=== PATIENT | female | born 1950 | race Caucasian/White ===

== ENCOUNTER 2016-12-17 14:31 | Outpatient (CLI) | payer BC ==
[2015-08-18 04:45] VITALS: O2SAT 99
== END 2016-12-17 14:32 | disposition home or self-care (01) ==
LOC: CONVCARE 14:31
PROVIDERS: ATTEND Orthopaedic Surgery
DX: M16.11 Unilateral primary osteoarthritis, right hip (principal)
CPT/HCPCS: 73502

== ENCOUNTER 2018-05-11 10:26 | Outpatient (CLI) | payer MEDICARE, BC ==
[2015-08-18 04:45] VITALS: O2SAT 99
== END 2018-05-11 10:27 | disposition home or self-care (01) | DRG 554 ==
LOC: CONVCARE 10:26
PROVIDERS: ATTEND Orthopaedic Surgery
DX: M16.11 Unilateral primary osteoarthritis, right hip (principal)
CPT/HCPCS: 73502

== ENCOUNTER 2018-11-02 05:25 | Inpatient (IN) | payer MEDICARE, BC ==
[~2018-11-02 05:25] MED LIST: SODIUM CHLORIDE 0.9% FLUSH 10 ML SOL IV PRN
[2018-11-02] MEDS ORDERED: SCOPOLAMINE 1.5MG PATCH TD SCH (06:00)
[2018-11-02] MEDS ORDERED: LACTATED RINGERS 1,000 ML IV ONE (06:30)
[2018-11-02] MEDS ORDERED: LACTATED RINGERS 1,000 ML IV SCH (07:30)
[2018-11-02] MEDS ORDERED: PROPOFOL 500 MG/50 ML EMU IV ONE (07:34)
[2018-11-02] MEDS ORDERED: PHENYLEPHRINE HYDROCHLORIDE 10 MG/ML SOL ONE (07:34)
[2018-11-02] MEDS ORDERED: MORPHINE SULFATE 0.5 MG/ML SOL ONE (07:34)
[2018-11-02] MEDS ORDERED: CEFAZOLIN SODIUM 1 GM PDS ONE ×3 (07:34→23:57)
[2018-11-02] MEDS ORDERED: DEXAMETHASONE 20 MG/5 ML (4 MG/ML SOL) ONE (07:34)
[2018-11-02] MEDS ORDERED: FENTANYL 100MCG/2ML SOL ONE (07:34)
[2018-11-02] MEDS ORDERED: ONDANSETRON HCL 4 MG/2 ML SOL ONE (07:34)
[2018-11-02] MEDS ORDERED: MIDAZOLAM 2 MG/2 ML SOL ONE (07:34)
[2018-11-02] MEDS ORDERED: BUPIVACAINE LIPOSOME 20 ML SUS ONE (07:42)
[2018-11-02] MEDS ORDERED: BUPIVACAINE HCL 0.25% MPF 30 ML SOL INFIL ONE (07:42)
[2018-11-02] MEDS ORDERED: SODIUM CHLORIDE 20 ML 20 ML ONE (07:42)
[2018-11-02] MEDS ORDERED: BUPIVACAINE HCL IN DEXTROSE/PF 2 ML AMPUL IJ ONE (07:45)
[2018-11-02] MEDS ORDERED: TRANEXAMIC ACID 100 MG/ML SOL IR ONE (09:00)
[2018-11-02] MEDS ORDERED: MORPHINE SULFATE 10 MG/ML SOL IV PRN (09:14)
[2018-11-02] MEDS ORDERED: ONDANSETRON 4 MG ODT BU PRN (09:14)
[2018-11-02] MEDS ORDERED: SODIUM CHLORIDE 0.9% 500 ML 500 ML IV PRN (09:14)
[2018-11-02] MEDS ORDERED: ACETAMINOPHEN 325 MG PO PRN (09:14)
[2018-11-02] MEDS ORDERED: DIAZEPAM 5 MG TAB PO PRN (09:14)
[2018-11-02] MEDS ORDERED: ALBUTEROL NEB SOL 2.5MG/3ML 1 VIAL SOL NEB PRN (12:51)
[2018-11-02] MEDS: DEXTROSE/SALINE 0.45/KCL 20MEQ 1,000 ML/1,000 ML SOL IV SCH ×2 (13:15→19:25)
[2018-11-02] MEDS: SODIUM CHLORIDE 0.9% FLUSH 10 ML SOL IV SCH ×2 (13:18→18:03)
[2018-11-02] MEDS ORDERED: CEFAZOLIN SODIUM 1 GM PDS 2 GM in SODIUM CHLORIDE 0.9% 100 ML 100 ML IV SCH (15:15)
[2018-11-02] MEDS: DIPHENHYDRAMINE 50 MG/ML SOL IV PRN ×2 (15:41→23:44)
[2018-11-02] MEDS ORDERED: SODIUM CHLORIDE 0.9% 100 ML 100 ML IV ONE ×2 (16:35→23:57)
[2018-11-02] MEDS: CEFAZOLIN SODIUM 1 GM PDS 2 GM in SODIUM CHLORIDE 0.9% 100 ML 100 ML IV SCH (16:48)
[2018-11-02] MEDS: SENNOSIDES A AND B 8.6 MG TAB PO SCH (21:20)
[2018-11-02] MEDS: APAP/HYDROCODONE 1 EACH TABLET PO PRN (21:20)
[2018-11-03] MEDS: CEFAZOLIN SODIUM 1 GM PDS 2 GM in SODIUM CHLORIDE 0.9% 100 ML 100 ML IV SCH (00:08)
[2018-11-03] MEDS: SODIUM CHLORIDE 0.9% FLUSH 10 ML SOL IV SCH ×3 (01:30→19:17)
[2018-11-03] MEDS: APAP/HYDROCODONE 1 EACH TABLET PO PRN ×5 (01:30→21:11)
[2018-11-03 07:20] LABS: HEMOGLOBIN 11.5 gm/dl (12.0-15.5); MEAN CORPUSCULAR HEMOGLOBIN 30.3 pg (27.0-32.0); MEAN CORPUSCULAR HGB CONC 32.9 gm/dl (32.0-36.0)
[2018-11-03] MEDS ORDERED: ATORVASTATIN CALCIUM 40 MG TAB PO SCH (09:00)
[2018-11-03] MEDS ORDERED: BUPROPION 150 MG PO SCH (09:00)
[2018-11-03] MEDS ORDERED: OMEPRAZOLE 20 MG PO SCH (09:00)
[2018-11-03] MEDS: PANTOPRAZOLE SODIUM 40 MG ECT PO SCH (09:01)
[2018-11-03] MEDS: ESCITALOPRAM 10 MG TAB PO SCH (09:01)
[2018-11-03] MEDS: RIVAROXABAN 10 MG TAB PO SCH (09:01)
[2018-11-03] MEDS: MULTIVITAMIN2 1 EA TAB PO SCH (09:01)
[2018-11-03] MEDS: LISINOPRIL 5 MG TAB PO SCH (09:02)
[2018-11-03] MEDS: HYDROCHLOROTHIAZIDE 25 MG TAB PO SCH (11:54)
[2018-11-03] MEDS: ATORVASTATIN 10 MG TAB PO SCH (12:03)
[2018-11-03] MEDS: DIPHENHYDRAMINE 50 MG/ML SOL IV PRN (12:04)
[2018-11-03] MEDS: BUPROPION XL 150 MG T24 PO SCH (12:04)
[2018-11-03] MEDS: SENNOSIDES A AND B 8.6 MG TAB PO SCH (21:11)
[2018-11-04] MEDS: APAP/HYDROCODONE 1 EACH TABLET PO PRN ×6 (01:13→21:11)
[2018-11-04] MEDS: SODIUM CHLORIDE 0.9% FLUSH 10 ML SOL IV SCH ×2 (01:13→10:01)
[2018-11-04 07:29] LABS: HEMOGLOBIN 11.5 gm/dl (12.0-15.5); MEAN CORPUSCULAR HEMOGLOBIN 30.6 pg (27.0-32.0); MEAN CORPUSCULAR HGB CONC 32.7 gm/dl (32.0-36.0)
[2018-11-04] MEDS: ESCITALOPRAM 10 MG TAB PO SCH (09:58)
[2018-11-04] MEDS: ATORVASTATIN 10 MG TAB PO SCH (09:58)
[2018-11-04] MEDS: HYDROCHLOROTHIAZIDE 25 MG TAB PO SCH (09:58)
[2018-11-04] MEDS: MULTIVITAMIN2 1 EA TAB PO SCH (09:59)
[2018-11-04] MEDS: BUPROPION XL 150 MG T24 PO SCH (09:59)
[2018-11-04] MEDS: RIVAROXABAN 10 MG TAB PO SCH (09:59)
[2018-11-04] MEDS: PANTOPRAZOLE SODIUM 40 MG ECT PO SCH (09:59)
[2018-11-04] MEDS: LISINOPRIL 5 MG TAB PO SCH (10:00)
[2018-11-04] MEDS: SENNOSIDES A AND B 8.6 MG TAB PO SCH (21:12)
[2018-11-05] MEDS: APAP/HYDROCODONE 1 EACH TABLET PO PRN ×3 (00:32→10:01)
[2018-11-05 07:32] LABS: HEMOGLOBIN 10.9 gm/dl (12.0-15.5); MEAN CORPUSCULAR HEMOGLOBIN 30.5 pg (27.0-32.0); MEAN CORPUSCULAR HGB CONC 33.2 gm/dl (32.0-36.0)
[2018-11-05 07:44] LABS: CALCIUM 8.5 mg/dl (8.5-10.1); CREATININE 0.71 mg/dl (0.60-1.00); POTASSIUM 3.2 mMol/L (3.5-5.1)
[2018-11-05] MEDS: ATORVASTATIN 10 MG TAB PO SCH (08:17)
[2018-11-05] MEDS: RIVAROXABAN 10 MG TAB PO SCH (08:17)
[2018-11-05] MEDS: HYDROCHLOROTHIAZIDE 25 MG TAB PO SCH (08:17)
[2018-11-05] MEDS: LISINOPRIL 5 MG TAB PO SCH (08:18)
[2018-11-05] MEDS: BUPROPION XL 150 MG T24 PO SCH (08:18)
[2018-11-05] MEDS: PANTOPRAZOLE SODIUM 40 MG ECT PO SCH (08:18)
[2018-11-05] MEDS: MULTIVITAMIN2 1 EA TAB PO SCH (08:18)
[2018-11-05] MEDS: ESCITALOPRAM 10 MG TAB PO SCH (08:19)
[2018-11-05 08:21] VITALS: BP 118/81; PULSE 95; RESP 16; TEMP 97.2; O2SAT 94
[2018-11-05] MEDS ORDERED: POTASSIUM CHLORIDE 10 MEQ TER PO SCH (09:15)
[2018-11-05] MEDS ORDERED: PNEUMOC 13-VAL CONJ-DIP CRM/PF 0.5 ML SYRINGE IM ONE (09:44)
== END 2018-11-05 10:54 | disposition swing bed (61) | DRG 470 ==
LOC: ACUTE CARE 05:25
PROVIDERS: ADMIT Orthopaedic Surgery; ATTEND Orthopaedic Surgery
PROC: F01L5YZ Range of Motion and Joint Integrity Assessment of Musculoskeletal System - Lower Back / Lower Extremity using Other Equipment (ICD-10-PCS; 2018-11-02)
PROC: F01ZBFZ Bed Mobility Assessment using Assistive, Adaptive, Supportive or Protective Equipment (ICD-10-PCS; 2018-11-02)
PROC: F01ZCFZ Transfer Assessment using Assistive, Adaptive, Supportive or Protective Equipment (ICD-10-PCS; 2018-11-02)
PROC: 0SR90JA Replacement of Right Hip Joint with Synthetic Substitute, Uncemented, Open Approach (ICD-10-PCS; principal; 2018-11-02 08:00)
PROC: F02Z0FZ Bathing/Showering Assessment using Assistive, Adaptive, Supportive or Protective Equipment (ICD-10-PCS; 2018-11-03)
PROC: F02Z3ZZ Grooming/Personal Hygiene Assessment (ICD-10-PCS; 2018-11-03)
DX: M16.11 Unilateral primary osteoarthritis, right hip (principal); Z96.641 Presence of right artificial hip joint; I10 Essential (primary) hypertension; E78.5 Hyperlipidemia, unspecified; F32.9 Major depressive disorder, single episode, unspecified; E87.6 Hypokalemia
CPT/HCPCS: 36415; 73501; 73502; 80048; 85027; 85049; 90670; 94150; J0690; J1100; J1200; J2250; J2274; J2405; J3010; A6232; A9270-GY; G0008; J2370; J2704; J3490; Q3014

== ENCOUNTER 2018-11-05 09:41 | Inpatient (IN) | payer MEDICARE, BC ==
[2018-11-05] MEDS: POTASSIUM CHLORIDE 10 MEQ TER PO SCH ×2 (13:13→16:30)
[2018-11-05] MEDS: APAP/HYDROCODONE 1 EACH TABLET PO PRN ×3 (15:20→23:14)
[2018-11-06] MEDS: APAP/HYDROCODONE 1 EACH TABLET PO PRN ×4 (04:03→20:51)
[2018-11-06] MEDS: LISINOPRIL 5 MG TAB PO SCH (08:31)
[2018-11-06] MEDS: MULTIVITAMIN2 1 EA TAB PO SCH (08:31)
[2018-11-06] MEDS: ESCITALOPRAM 10 MG TAB PO SCH (08:31)
[2018-11-06] MEDS: RIVAROXABAN 10 MG TAB PO SCH (08:31)
[2018-11-06] MEDS: ATORVASTATIN 10 MG TAB PO SCH (08:31)
[2018-11-06] MEDS: BUPROPION XL 150 MG T24 PO SCH (08:32)
[2018-11-06] MEDS: HYDROCHLOROTHIAZIDE 25 MG TAB PO SCH (08:33)
[2018-11-06] MEDS: PANTOPRAZOLE SODIUM 40 MG ECT PO SCH (08:33)
[2018-11-07] MEDS: APAP/HYDROCODONE 1 EACH TABLET PO PRN ×3 (08:04→21:10)
[2018-11-07] MEDS: LISINOPRIL 5 MG TAB PO SCH (08:05)
[2018-11-07] MEDS: ATORVASTATIN 10 MG TAB PO SCH (08:09)
[2018-11-07] MEDS: PANTOPRAZOLE SODIUM 40 MG ECT PO SCH (08:10)
[2018-11-07] MEDS: ESCITALOPRAM 10 MG TAB PO SCH (08:10)
[2018-11-07] MEDS: MULTIVITAMIN2 1 EA TAB PO SCH (08:10)
[2018-11-07] MEDS: HYDROCHLOROTHIAZIDE 25 MG TAB PO SCH (08:10)
[2018-11-07] MEDS: RIVAROXABAN 10 MG TAB PO SCH (08:11)
[2018-11-07] MEDS: BUPROPION XL 150 MG T24 PO SCH (08:11)
[2018-11-08] MEDS: APAP/HYDROCODONE 1 EACH TABLET PO PRN ×4 (00:50→21:04)
[2018-11-08] MEDS: HYDROCHLOROTHIAZIDE 25 MG TAB PO SCH (08:32)
[2018-11-08] MEDS: ESCITALOPRAM 10 MG TAB PO SCH (08:33)
[2018-11-08] MEDS: MULTIVITAMIN2 1 EA TAB PO SCH (08:34)
[2018-11-08] MEDS: ATORVASTATIN 10 MG TAB PO SCH (08:34)
[2018-11-08] MEDS: BUPROPION XL 150 MG T24 PO SCH (08:34)
[2018-11-08] MEDS: PANTOPRAZOLE SODIUM 40 MG ECT PO SCH (08:34)
[2018-11-08] MEDS: LISINOPRIL 5 MG TAB PO SCH (08:35)
[2018-11-08] MEDS: RIVAROXABAN 10 MG TAB PO SCH (08:35)
[2018-11-08] MEDS ORDERED: METAXALONE 800 MG TABLET PO PRN (10:14)
[2018-11-08 10:45] LABS: APPEARANCE,URINE Clear; BILIRUBIN,URINE NEGATIVE (NEGATIVE); COLOR,URINE Yellow; GLUCOSE, URINE (UA) NEGATIVE (NEGATIVE); KETONES,URINE NEGATIVE (NEGATIVE); LEUKOCYTE ESTERASE ,URINE TRACE (NEGATIVE); NITRATE,URINE NEGATIVE (NEGATIVE); OCCULT BLOOD,URINE TRACE LYSED (NEG-TRACE); UROBILINOGEN,URINE 0.2 (0.2-1.0 EU)
[2018-11-08 11:02] LABS: BACTERIA TRACE (< 1+); CRYSTALS NEGATIVE (0-3 AVE/HPF)
[2018-11-08] MEDS: TRAZODONE HYDROCHLORIDE 50 MG TAB PO SCH (23:34)
[2018-11-09] MEDS: APAP/HYDROCODONE 1 EACH TABLET PO PRN ×3 (03:26→23:49)
[2018-11-09 07:15] LABS: CARBON DIOXIDE 30.9 mEq/L (21-32); CREATININE 0.76 mg/dl (0.60-1.00); POTASSIUM 3.9 mMol/L (3.5-5.1)
[2018-11-09] MEDS: ATORVASTATIN 10 MG TAB PO SCH (09:05)
[2018-11-09] MEDS: ESCITALOPRAM 10 MG TAB PO SCH (09:05)
[2018-11-09] MEDS: HYDROCHLOROTHIAZIDE 25 MG TAB PO SCH (09:05)
[2018-11-09] MEDS: BUPROPION XL 150 MG T24 PO SCH (09:06)
[2018-11-09] MEDS: PANTOPRAZOLE SODIUM 40 MG ECT PO SCH (09:06)
[2018-11-09] MEDS: MULTIVITAMIN2 1 EA TAB PO SCH (09:06)
[2018-11-09] MEDS: RIVAROXABAN 10 MG TAB PO SCH (09:07)
[2018-11-09] MEDS: LISINOPRIL 5 MG TAB PO SCH (09:07)
[2018-11-09] MEDS: TRAZODONE HYDROCHLORIDE 50 MG TAB PO SCH (23:05)
[2018-11-10] MEDS: ESCITALOPRAM 10 MG TAB PO SCH (09:18)
[2018-11-10] MEDS: ATORVASTATIN 10 MG TAB PO SCH (09:18)
[2018-11-10] MEDS: MULTIVITAMIN2 1 EA TAB PO SCH (09:19)
[2018-11-10] MEDS: RIVAROXABAN 10 MG TAB PO SCH (09:19)
[2018-11-10] MEDS: LISINOPRIL 5 MG TAB PO SCH (09:19)
[2018-11-10] MEDS: PANTOPRAZOLE SODIUM 40 MG ECT PO SCH (09:19)
[2018-11-10] MEDS: BUPROPION XL 150 MG T24 PO SCH (09:20)
[2018-11-10] MEDS: HYDROCHLOROTHIAZIDE 25 MG TAB PO SCH (09:20)
[2018-11-10 11:08] VITALS: BP 98/63; PULSE 98; RESP 16; TEMP 96.5; O2SAT 98
== END 2018-11-10 14:00 | disposition home or self-care (01) | DRG 554 ==
LOC: ACUTE CARE 10:56
PROVIDERS: ADMIT Family Medicine; ATTEND Family Medicine
PROC: F01ZBFZ Bed Mobility Assessment using Assistive, Adaptive, Supportive or Protective Equipment (ICD-10-PCS; principal; 2018-11-05)
PROC: F01ZDFZ Gait and/or Balance Assessment using Assistive, Adaptive, Supportive or Protective Equipment (ICD-10-PCS; 2018-11-05)
PROC: F02Z0ZZ Bathing/Showering Assessment (ICD-10-PCS; 2018-11-05)
PROC: F02Z3ZZ Grooming/Personal Hygiene Assessment (ICD-10-PCS; 2018-11-05)
DX: M16.11 Unilateral primary osteoarthritis, right hip (principal); F32.0 Major depressive disorder, single episode, mild; M89.9 Disorder of bone, unspecified; Z96.641 Presence of right artificial hip joint; I10 Essential (primary) hypertension; E78.5 Hyperlipidemia, unspecified
CPT/HCPCS: 36415; 80048; 81001; 84132; 87077; 87088; 87186; A9270-GY

== ENCOUNTER 2018-12-14 13:53 | Outpatient (CLI) | payer MEDICARE, BC | END 2018-12-14 13:54 | disposition home or self-care (01) | LOC: CONVCARE 13:53 ==

== ENCOUNTER 2019-01-25 10:36 | Outpatient (CLI) | payer MEDICARE, BC ==
[2018-11-10 11:08] VITALS: O2SAT 98
== END 2019-01-25 10:37 | disposition home or self-care (01) | DRG 561 ==
LOC: CONVCARE 10:36
PROVIDERS: ATTEND Orthopaedic Surgery
DX: Z47.1 Aftercare following joint replacement surgery (principal); Z96.641 Presence of right artificial hip joint
CPT/HCPCS: 73501

== ENCOUNTER 2019-03-13 10:04 | Inpatient (IN) | payer MEDICARE, BC ==
[2019-03-13] MEDS ORDERED: MECLIZINE HYDROCHLORIDE 12.5 MG TAB PO ONE (10:39)
[2019-03-13] MEDS ORDERED: ONDANSETRON HCL 4 MG/2 ML SOL IV ONE (10:39)
[2019-03-13 10:41] LABS: BASOPHILS % (AUTO) 1 % (0-3); EOSINOPHILS % (AUTO) 2 % (0-9); HEMATOCRIT 44 % (35-47); HEMOGLOBIN 14.7 gm/dl (12.0-15.5); LYMPHOCYTES % (AUTO) 23.5 % (10-50); MEAN CORPUSCULAR HEMOGLOBIN 29.4 pg (27.0-32.0); MEAN CORPUSCULAR HGB CONC 33.3 gm/dl (32.0-36.0); MEAN CORPUSCULAR VOLUME 88 fL (81-99); NEUTROPHILS % (AUTO) 67.1 % (37-80)
[2019-03-13 10:50] LABS: APPEARANCE,URINE Clear; BILIRUBIN,URINE NEGATIVE (NEGATIVE); COLOR,URINE Yellow; GLUCOSE, URINE (UA) NEGATIVE (NEGATIVE); KETONES,URINE NEGATIVE (NEGATIVE); LEUKOCYTE ESTERASE ,URINE NEGATIVE (NEGATIVE); NITRATE,URINE NEGATIVE (NEGATIVE); OCCULT BLOOD,URINE 1+ (NEG-TRACE); PH,URINE 6.5; UROBILINOGEN,URINE 0.2 (0.2-1.0 EU)
[2019-03-13 10:53] LABS: INR 1.02 (0.86-1.12)
[2019-03-13 11:00] LABS: BACTERIA NEGATIVE (< 1+); CRYSTALS NEGATIVE (0-3 AVE/HPF); EPITHELIAL CELLS 0-3 (SQUAMOUS); WBC,URINE 0-2 (0-5AV/HPF)
[2019-03-13 11:01] LABS: BLOOD UREA NITROGEN 13 mg/dl (7-18); CALCIUM 9.2 mg/dl (8.5-10.1); CARBON DIOXIDE 29.7 mEq/L (21-32); CHLORIDE 105 mMol/L (98-107); CREATINE KINASE 95 U/L (26-192); CREATININE 0.69 mg/dl (0.60-1.00); GLUCOSE 101 mg/dl (74-106); TROP I < 0.017 ng/ml (0.000-0.056)
[2019-03-13] MEDS: SODIUM CHLORIDE 0.9% FLUSH 10 ML SOL IV PRN ×2 (11:05→13:33)
[2019-03-13] MEDS ORDERED: MECLIZINE HYDROCHLORIDE 12.5 MG TAB ONE (11:07)
[2019-03-13] MEDS ORDERED: ONDANSETRON HCL 4 MG/2 ML SOL ONE (11:07)
[2019-03-13] MEDS ORDERED: METOCLOPRAMIDE HYDROCHLORIDE 5 MG/ML SOL ONE (13:27)
[2019-03-13] MEDS ORDERED: METOCLOPRAMIDE HYDROCHLORIDE 5 MG/ML SOL IV ONE (13:27)
[2019-03-13] MEDS ORDERED: DIAZEPAM 5MG/ML SOL IV ONE (14:36)
[2019-03-13] MEDS ORDERED: DIAZEPAM 5 MG TAB ONE (14:42)
[2019-03-13] MEDS: SODIUM CHLORIDE 0.9% 1000ML 1,000 ML IV SCH ×2 (14:50→16:14)
[2019-03-13] MEDS: MECLIZINE HYDROCHLORIDE 12.5 MG TAB PO SCH (18:21)
[2019-03-13] MEDS: DIAZEPAM 5 MG TAB PO PRN (20:14)
[2019-03-13] MEDS: SODIUM CHLORIDE 0.9% FLUSH 10 ML SOL IV SCH (20:14)
[2019-03-13] MEDS ORDERED: METOPROLOL SUCCINATE 50 MG ER TAB PO ONE (21:00)
[2019-03-14] MEDS: MECLIZINE HYDROCHLORIDE 12.5 MG TAB PO SCH ×5 (00:05→23:23)
[2019-03-14] MEDS: SODIUM CHLORIDE 0.9% FLUSH 10 ML SOL IV SCH ×3 (06:00→21:33)
[2019-03-14] MEDS: DIAZEPAM 5 MG TAB PO PRN ×3 (06:18→23:23)
[2019-03-14] MEDS: ONDANSETRON HCL 4 MG/2 ML SOL IV PRN (07:05)
[2019-03-14] MEDS: SODIUM CHLORIDE 0.9% FLUSH 10 ML SOL IV PRN ×3 (07:06→15:16)
[2019-03-14] MEDS ORDERED: LORAZEPAM 2 MG/ML SOL IV PRN (07:42)
[2019-03-14] MEDS ORDERED: SODIUM CHLORIDE 0.9% 1000ML 1,000 ML IV ONE (07:46)
[2019-03-14] MEDS ORDERED: METOPROLOL SUCCINATE 25 MG TAB.ER.24H PO SCH (09:00)
[2019-03-14] MEDS ORDERED: ATORVASTATIN CALCIUM 40 MG TAB PO SCH (09:00)
[2019-03-14] MEDS ORDERED: BUPROPION 150 MG PO SCH (09:00)
[2019-03-14] MEDS ORDERED: ONDANSETRON HCL 4 MG/2 ML SOL IV ONE (09:28)
[2019-03-14] MEDS: HYDROCHLOROTHIAZIDE 25 MG TAB PO SCH (11:28)
[2019-03-14] MEDS: LISINOPRIL 5 MG TAB PO SCH (11:28)
[2019-03-14] MEDS: MULTIVITAMIN2 1 EA TAB PO SCH (11:29)
[2019-03-14] MEDS: ASPIRIN 81 MG CHEWABLE CTB PO SCH (11:29)
[2019-03-14] MEDS: ESCITALOPRAM 10 MG TAB PO SCH (11:29)
[2019-03-14] MEDS: METOPROLOL SUCCINATE 50 MG TER PO SCH (11:29)
[2019-03-14] MEDS: ATORVASTATIN 10 MG TAB PO SCH (11:30)
[2019-03-14] MEDS: BUPROPION XL 150 MG T24 PO SCH (11:31)
[2019-03-15] MEDS: SODIUM CHLORIDE 0.9% FLUSH 10 ML SOL IV SCH ×3 (07:09→20:15)
[2019-03-15] MEDS: MECLIZINE HYDROCHLORIDE 12.5 MG TAB PO SCH ×3 (07:09→18:01)
[2019-03-15 07:15] VITALS: RESP 16
[2019-03-15] MEDS: BUPROPION XL 150 MG T24 PO SCH (09:17)
[2019-03-15] MEDS: ASPIRIN 81 MG CHEWABLE CTB PO SCH (09:17)
[2019-03-15] MEDS: HYDROCHLOROTHIAZIDE 25 MG TAB PO SCH (09:17)
[2019-03-15] MEDS: LISINOPRIL 5 MG TAB PO SCH (09:18)
[2019-03-15] MEDS: ATORVASTATIN 10 MG TAB PO SCH (09:19)
[2019-03-15] MEDS: MULTIVITAMIN2 1 EA TAB PO SCH (09:20)
[2019-03-15] MEDS: ESCITALOPRAM 10 MG TAB PO SCH (09:20)
[2019-03-15] MEDS: METOPROLOL SUCCINATE 50 MG TER PO SCH (09:21)
[2019-03-15] MEDS: ONDANSETRON HCL 4 MG/2 ML SOL IV PRN (09:22)
[2019-03-15] MEDS: SODIUM CHLORIDE 0.9% FLUSH 10 ML SOL IV PRN (09:23)
[2019-03-15] MEDS: PREDNISONE 20 MG TAB PO SCH (14:39)
[2019-03-16] MEDS: MECLIZINE HYDROCHLORIDE 12.5 MG TAB PO SCH ×3 (00:18→12:39)
[2019-03-16] MEDS: SODIUM CHLORIDE 0.9% FLUSH 10 ML SOL IV SCH ×2 (05:34→12:36)
[2019-03-16 07:46] VITALS: BP 146/81; PULSE 83; TEMP 97.5; O2SAT 93
[2019-03-16] MEDS ORDERED: PREDNISONE 20 MG TAB PO SCH (09:00)
[2019-03-16] MEDS: HYDROCHLOROTHIAZIDE 25 MG TAB PO SCH (09:42)
[2019-03-16] MEDS: ASPIRIN 81 MG CHEWABLE CTB PO SCH (09:42)
[2019-03-16] MEDS: ESCITALOPRAM 10 MG TAB PO SCH (09:42)
[2019-03-16] MEDS: METOPROLOL SUCCINATE 50 MG TER PO SCH (09:43)
[2019-03-16] MEDS: MULTIVITAMIN2 1 EA TAB PO SCH (09:43)
[2019-03-16] MEDS: ATORVASTATIN 10 MG TAB PO SCH (09:43)
[2019-03-16] MEDS: PREDNISONE 20 MG TAB PO SCH (09:45)
[2019-03-16] MEDS: BUPROPION XL 150 MG T24 PO SCH (09:45)
[2019-03-16] MEDS: LISINOPRIL 5 MG TAB PO SCH (09:45)
== END 2019-03-16 15:45 | disposition home or self-care (01) | DRG 149 ==
LOC: ED 10:04 → UNDOADMOB 15:07 → ACUTE CARE 15:07 → OBSVTOIN 03-15 14:30
PROVIDERS: ADMIT Family Medicine; ATTEND Family Medicine
PROC: F01K0ZZ Muscle Performance Assessment of Musculoskeletal System - Upper Back / Upper Extremity (ICD-10-PCS; principal; 2019-03-15)
PROC: F01K5ZZ Range of Motion and Joint Integrity Assessment of Musculoskeletal System - Upper Back / Upper Extremity (ICD-10-PCS; 2019-03-15)
DX: R42 Dizziness and giddiness (principal); R55 Syncope and collapse; F41.9 Anxiety disorder, unspecified; I10 Essential (primary) hypertension
CPT/HCPCS: 36415; 70450; 70551; 80048; 81001; 82550; 84443; 84484; 85025; 85610; 85730; 93005; 93012; 96365; 96374; 96375; 99284; 99285; J2060; J2405; J2765; A9270-GY